=== PATIENT | female | born 1955 | race Caucasian/White ===

== ENCOUNTER 2017-02-07 10:46 | Day surgery (SDC) | payer OTHER ==
[~2017-02-07] VITALS: Ht 157.5 cm; Wt 70.3 kg
[~2017-02-07 10:46] MED LIST: AMLODIPINE5 MG PO; ASPIRIN EC325 MG PO; BIOTIN1000 MCG PO; CENTRU3 PO; GARLIC1000 MG PO; HYDROXYZINE HCL25 M1 PO; IRON45 MG PO; LEVOTHYROXIN50 MCG PO; LEVOTHYROXINE200 MCG PO; LOSARTAN POT50 MG PO; PERCOCET1 TA4 PO; PREDNISONE5 MG PO; PROBIOTI2; PROTONIX40 M2 PO; ROPINIROLE2 MG PO; SULFASALAZIN500 MG PO; TRAMADOL HCL50 MG PO; VERAPAMIL180 M3 PO; [UNRECOGNIZED DRUG - OTHER] PO
[2017-02-07 13:49] VITALS: BP 106/66
== END 2017-02-07 14:10 | disposition home or self-care (01) | DRG 387 ==
LOC: ENDO 10:46
PROVIDERS: ATTEND Internal Medicine Gastroenterology
PROC: 0DBK8ZX Excision of Ascending Colon, Via Natural or Artificial Opening Endoscopic, Diagnostic (ICD-10-PCS; principal; 2017-02-07)
PROC: 0DBE8ZX Excision of Large Intestine, Via Natural or Artificial Opening Endoscopic, Diagnostic (ICD-10-PCS; 2017-02-07)
PROC: 0DBN8ZX Excision of Sigmoid Colon, Via Natural or Artificial Opening Endoscopic, Diagnostic (ICD-10-PCS; 2017-02-07)
PROC: 0DBP8ZX Excision of Rectum, Via Natural or Artificial Opening Endoscopic, Diagnostic (ICD-10-PCS; 2017-02-07)
DX: K51.90 Ulcerative colitis, unspecified, without complications (principal); K57.30 Diverticulosis of large intestine without perforation or abscess without bleeding; K63.5 Polyp of colon; K64.4 Residual hemorrhoidal skin tags; K64.8 Other hemorrhoids

== ENCOUNTER 2018-02-02 14:20 | Emergency (ER) | payer OTHER ==
[2018-02-02] VITALS (9 sets, daily range): BP systolic 102–129; BP diastolic 51–62
[~2018-02-02] VITALS: Ht 157.5 cm; Wt 68.2 kg
[2018-02-02] MEDS ORDERED: TRIAM/HCTZ1 CAP PO (14:54)
[2018-02-02] MEDS ORDERED: LEVOTHYROXIN100 MCG PO (14:54)
[2018-02-02] MEDS ORDERED: LOSARTAN POT50 MG PO (14:56)
[2018-02-02 15:20] LABS: IMMATURE GRANULOCYTES 0.3 % (0.0-5.0); MEAN CELL VOLUME 80.4 fL CALC (80.0-100.0); MEAN CORPUSCULAR HGB 23.4 pG CALC (26.0-32.0); MEAN CORPUSCULAR HGB CONC 29.1 g/L CALC (32.0-36.0); NEUT# 2.08 thou/uL (2.00-7.15); RED BLOOD COUNT 2.14 mill/uL (4.20-5.60); RED CELL DISTRI WIDTH 19.5 % (11.5-15.5)
[2018-02-02 15:24] LABS: HEMATOCRIT 17.2 % (37.0-47.0)
[2018-02-02 15:26] LABS: ANION GAP 12 (6-22 (CALC)); BUN 19 mg/dL (8-23); BUN/CREATININE RATIO 23 (12-20 (CALC)); CARBON DIOXIDE 27 mmol/l (22-30); CHLORIDE 104 mmol/l (95-108); CREATININE 0.8 mg/dL (0.5-1.0); GFR > 60 ML/MIN (>=60 (CALC)); GFR FOR AFR.AMER. > 60 ML/MIN (>=60 (CALC)); POTASSIUM 3.9 mmol/l (3.5-5.1); SODIUM 139 mmol/l (137-146)
== END 2018-02-02 21:14 | disposition short-term general hospital (02) | DRG 379 ==
LOC: ED 14:20
PROVIDERS: Family Medicine
PROC: 30233N1 Transfusion of Nonautologous Red Blood Cells into Peripheral Vein, Percutaneous Approach (ICD-10-PCS; principal; 2018-02-02)
DX: K92.2 Gastrointestinal hemorrhage, unspecified (principal); R06.02 Shortness of breath; R53.1 Weakness
CPT/HCPCS: P9016

== ENCOUNTER 2018-08-07 14:31 | Observation (INO) | payer OTHER ==
[~2018-08-07] VITALS: Ht 157.5 cm; Wt 74.0 kg
[~2018-08-07 14:31] MED LIST changes: +LEVOTHYROXIN100 MCG PO; +TRIAM/HCTZ1 CAP PO
[2018-08-07] MEDS ORDERED: LISINOPRIL10 MG PO (14:56)
[2018-08-07] MEDS ORDERED: PENTASA500 MG PO (14:59)
[2018-08-07] MEDS ORDERED: TESSALON PER100 MG PO (15:00)
[2018-08-07] MEDS ORDERED: BUDESONID2 IN (15:00)
[2018-08-07 15:01] LABS: GFR > 60 ML/MIN (>=60 (CALC)); GFR FOR AFR.AMER. > 60 ML/MIN (>=60 (CALC))
[2018-08-07 15:27] LABS: IMMATURE GRANULOCYTES 0.4 % (0.0-5.0); MEAN CORPUSCULAR HGB 26.6 pG CALC (26.0-32.0); MEAN CORPUSCULAR HGB CONC 30.9 g/L CALC (32.0-36.0); NEUT# 6.5 thou/uL (2.00-7.15); RED BLOOD COUNT 4.67 mill/uL (4.20-5.60); RED CELL DISTRI WIDTH 13.5 % (11.5-15.5)
[2018-08-07 15:29] LABS: ALBUMIN 4.4 g/dL (3.2-5.0); ALKALINE PHOSPHATASE 102 u/l (38-126); ANION GAP 16 (6-22 (CALC)); BILIRUBIN, TOTAL 0.6 mg/dL (0.0-1.4); BUN 14 mg/dL (8-23); BUN/CREATININE RATIO 18 (12-20 (CALC)); CARBON DIOXIDE 24 mmol/l (22-30); CHLORIDE 104 mmol/l (95-108); CREATININE 0.7 mg/dL (0.5-1.0); GFR > 60 ML/MIN (>=60 (CALC)); GFR FOR AFR.AMER. > 60 ML/MIN (>=60 (CALC)); LIPASE 56 u/l (23-300); SGOT/AST 21 u/l (9-36); SODIUM 140 mmol/l (137-146); TOTAL PROTEIN 7.2 g/dL (6.3-8.2)
[2018-08-07 15:33] LABS: HEMATOCRIT 40.1 % (37.0-47.0); HEMOGLOBIN 12.4 g/dl (12.0-16.0); MEAN CELL VOLUME 85.9 fL CALC (80.0-100.0)
[2018-08-07 16:07] LABS: URINE BILIRUBIN - DIPSTICK NEGATIVE (NEGATIVE); URINE BLOOD DIPSTICK NEGATIVE (NEGATIVE); URINE GLUCOSE - DIPSTICK NEGATIVE (NEGATIVE); URINE KETONE NEGATIVE (NEGATIVE); URINE LEUK ESTERASE NEGATIVE (NEGATIVE); URINE PROTEIN - DIPSTICK NEGATIVE (NEG-TRACE); URINE SPECIFIC GRAVITY <=1.005; URINE UROBILINOGEN - DIPSTICK 0.2 E.U./dL (0.2)
[2018-08-07 16:27] LABS: URINE NITRITE - DIPSTICK POSITIVE (Negative)
[2018-08-07 16:28] LABS: URINE BACTERIA FEW hpf; URINE COLOR ORANGE; URINE SQUAMOUS EPITHELIAL CELL FEW EPI/hpf (0-FEW)
[2018-08-07 18:28] VITALS: BP 153/53
[2018-08-08] VITALS: BP 150/76
[2018-08-08 04:05] VITALS: BP 121/68
[2018-08-08 05:32] LABS: HEMATOCRIT 34.9 % (37.0-47.0); HEMOGLOBIN 10.9 g/dl (12.0-16.0); IMMATURE GRANULOCYTES 0.3 % (0.0-5.0); MEAN CELL VOLUME 86.2 fL CALC (80.0-100.0); MEAN CORPUSCULAR HGB 26.9 pG CALC (26.0-32.0); MEAN CORPUSCULAR HGB CONC 31.2 g/L CALC (32.0-36.0); NEUT# 5.29 thou/uL (2.00-7.15); RED BLOOD COUNT 4.05 mill/uL (4.20-5.60); RED CELL DISTRI WIDTH 13.3 % (11.5-15.5)
[2018-08-08 05:57] LABS: ALKALINE PHOSPHATASE 74 u/l (38-126); BILIRUBIN, TOTAL 0.5 mg/dL (0.0-1.4); BUN 9 mg/dL (8-23); BUN/CREATININE RATIO 11 (12-20 (CALC)); CHLORIDE 104 mmol/l (95-108); CREATININE 0.8 mg/dL (0.5-1.0); GFR > 60 ML/MIN (>=60 (CALC)); GFR FOR AFR.AMER. > 60 ML/MIN (>=60 (CALC)); LIPASE 32 u/l (23-300); MAGNESIUM 1.7 mg/dL (1.6-2.3); POTASSIUM 3.9 mmol/l (3.5-5.1); SGOT/AST 13 u/l (9-36); SODIUM 142 mmol/l (137-146)
[2018-08-08 06:07] LABS: ALBUMIN 3.5 g/dL (3.2-5.0); AMYLASE < 30 u/l (30-110); ANION GAP 13 (6-22 (CALC)); CARBON DIOXIDE 29 mmol/l (22-30)
[2018-08-08 09:15] VITALS: BP 150/71
[2018-08-08 11:17] VITALS: BP 154/77
[2018-08-08 15:09] VITALS: BP 154/70
[2018-08-08 19:12] VITALS: BP 126/71
[2018-08-09] VITALS: BP 120/79
[2018-08-09 04:31] VITALS: BP 149/81
[2018-08-09 05:55] LABS: HEMATOCRIT 38.4 % (37.0-47.0); HEMOGLOBIN 11.9 g/dl (12.0-16.0); MEAN CELL VOLUME 86.1 fL CALC (80.0-100.0); MEAN CORPUSCULAR HGB 26.7 pG CALC (26.0-32.0); RED BLOOD COUNT 4.46 mill/uL (4.20-5.60); RED CELL DISTRI WIDTH 13.2 % (11.5-15.5)
[2018-08-09 08:13] VITALS: BP 116/48
[2018-08-09 10:21] VITALS: BP 128/70
[2018-08-09 10:22] VITALS: BP 128/70
== END 2018-08-09 13:56 | disposition home or self-care (01) | DRG 394 ==
LOC: ED 14:31 → ED-I 16:03 → ED 16:16 → MS2 16:17
PROVIDERS: Family Medicine; Nurse Practitioner Family; ADMIT Internal Medicine Nephrology; ATTEND Internal Medicine Nephrology
DX: K91.89 Other postprocedural complications and disorders of digestive system (principal); K57.32 Diverticulitis of large intestine without perforation or abscess without bleeding; K51.90 Ulcerative colitis, unspecified, without complications; I10 Essential (primary) hypertension; E03.9 Hypothyroidism, unspecified; M15.9 Polyosteoarthritis, unspecified; M45.9 Ankylosing spondylitis of unspecified sites in spine; Y83.8 Other surgical procedures as the cause of abnormal reaction of the patient, or of later complication, without mention of misadventure at the time of the procedure; Z86.010 Personal history of colon polyps
CPT/HCPCS: G0378; Q9967